=== PATIENT | female | born 1995 | race Two or more races ===

== ENCOUNTER 2016-08-15 19:07 | Emergency (ER) | payer OTHER, MEDICAID ==
[2016-08-15] MEDS ORDERED: KETOROLAC TROMETHAMINE 30 MG/ML 1 ML VIAL ONE (20:18)
== END 2016-08-15 20:55 | disposition home or self-care (01) ==
LOC: ED 19:07
DX: S16.1XXA Strain of muscle, fascia and tendon at neck level, initial encounter (principal); J45.909 Unspecified asthma, uncomplicated; Z86.61 Personal history of infections of the central nervous system; X58.XXXA Exposure to other specified factors, initial encounter; Y93.84 Activity, sleeping
CPT/HCPCS: 99282 ×2; 96372; J1885